=== PATIENT | female | born 1990 | race Caucasian/White ===

== ENCOUNTER 2018-01-28 14:51 | Emergency (ER) | payer MEDICAID ==
[~2018-01-28] VITALS: Ht 162.6 cm; Wt 69.4 kg
[2018-01-28] MEDS ORDERED: AMOXICILLIN500 MG PO (15:07)
[2018-01-28] MEDS ORDERED: ZOFRAN ODT8 MG PO (17:45)
== END 2018-01-28 18:07 | disposition home or self-care (01) ==
LOC: ED 14:51
DX: K04.7 Periapical abscess without sinus (principal); F17.200 Nicotine dependence, unspecified, uncomplicated; Z88.5 Allergy status to narcotic agent
CPT/HCPCS: 96361; 96374; 96375; 99283; J1885; J2405; J7030

== ENCOUNTER 2018-08-18 06:46 | Emergency (ER) | payer OTHER ==
[~2018-08-18] VITALS: Ht 162.6 cm; Wt 69.4 kg
[~2018-08-18 06:46] MED LIST: AMOXICILLIN500 MG PO; ZOFRAN ODT8 MG PO
[2018-08-18] MEDS ORDERED: IBU800 MG PO (07:03)
[2018-08-18] MEDS ORDERED: ATROVENT HFA12.9 GM INH (07:36)
[2018-08-18] MEDS ORDERED: PREDNISONE20 MG PO (07:36)
[2018-08-18] MEDS ORDERED: VENTOLIN HFA18 GM INH (08:33)
== END 2018-08-18 08:40 | disposition home or self-care (01) ==
LOC: ED 06:46
DX: J45.901 Unspecified asthma with (acute) exacerbation (principal); F17.200 Nicotine dependence, unspecified, uncomplicated; Z88.5 Allergy status to narcotic agent
CPT/HCPCS: 94640; 99283; J7512

== ENCOUNTER 2018-10-04 12:31 | Emergency (ER) | payer OTHER ==
[~2018-10-04] VITALS: Ht 162.6 cm; Wt 112.5 kg
[~2018-10-04 12:31] MED LIST changes: +ATROVENT HFA12.9 GM INH; +IBU800 MG PO; +PREDNISONE20 MG PO; +VENTOLIN HFA18 GM INH
[2018-10-04] MEDS ORDERED: PRENATAL FORMU1 EAC2 PO (12:42)
[2018-10-04] MEDS ORDERED: NASAL DECONGEST30 M2 PO (13:58)
[2018-10-04] MEDS ORDERED: AUGMENTIN 875-1 EACH PO (13:58)
[2018-10-04] MEDS ORDERED: PEPCID20 MG PO (13:58)
[2018-10-04] MEDS ORDERED: PROMETHAZINE HC25 M1 PO (13:58)
== END 2018-10-04 14:33 | disposition home or self-care (01) ==
LOC: ED 12:31
DX: O99.511 Diseases of the respiratory system complicating pregnancy, first trimester (principal); J32.0 Chronic maxillary sinusitis; O99.611 Diseases of the digestive system complicating pregnancy, first trimester; K21.9 Gastro-esophageal reflux disease without esophagitis; Z3A.11 11 weeks gestation of pregnancy; O99.331 Smoking (tobacco) complicating pregnancy, first trimester; F17.200 Nicotine dependence, unspecified, uncomplicated; Z88.5 Allergy status to narcotic agent; Z79.899 Other long term (current) drug therapy
CPT/HCPCS: 87502; 99283; 99406

== ENCOUNTER 2019-04-16 00:08 | Inpatient (IN) | payer OTHER ==
[~2019-04-16] VITALS: Ht 163.8 cm; Wt 121.0 kg
[~2019-04-16 00:08] MED LIST changes: +AUGMENTIN 875-1 EACH PO; +NASAL DECONGEST30 M2 PO; +PEPCID20 MG PO; +PRENATAL FORMU1 EAC2 PO; +PROMETHAZINE HC25 M1 PO
--- NOTE | 2019-04-16 10:30 | PR ---
[facility] [address] [facility] [place], [place] [address] Signed Progress Notes IP Datetime Report Generated by CPN: 04/16/2019 10:30 PROGRESS NOTES: [id number] Procedures: Artificial ROM Plan: Continue present management VITAL SIGNS: [id number] Vital Signs: Reviewed; Within Normal Limits EXAM: [id number] Dilatation: 2.0 Effacement: 25 Station: -3 Uterine Contractions: every 1-2 minutes MEMBRANES: [id number] Membrane Status: Ruptured Amniotic Fluid Color: Clear ROM Note: AROM with moderate clear fluid seen Comments: Tolerating contracitons well Fetus A: [id number] FHR Baseline: 130 Variability: Moderate 6-25bpm Accelerations: 15X15 Presentation: Vertex Fetus B: [id number] Signing Physician: Isaias Walters MD Copies: ~ *Electronically Signed* 04/16/19 1030 ISAIAS WALTERS MD PATIENT NAME: PEPE LEWIS PROGRESS NOTE DATE OF : [birth year] PHYSICIAN: ISAIAS WALTERS MD RPT #: [id number] REPORT IS CONFIDENTIAL AND NOT TO BE RELEASED WITHOUT AUTHORIZATION
--- NOTE | 2019-04-16 14:44 | PR ---
[facility] [address] [place], [place] [address] Signed Progress Notes IP Datetime Report Generated by CPN: 04/16/2019 14:44 PROGRESS NOTES: [id number] Impression: Non-reassuring heart rate Other Impressions: Bradycardia Procedures: Intrauterine Pressure Catheter; Scalp Electrode Plan: Deliver- Section Informed Consent Obtain: Section Delivery; Risks, Benefits and Alternatives Discussed VITAL SIGNS: [id number] Vital Signs: Reviewed; Within Normal Limits EXAM: [id number] Dilatation: 2.0 Effacement: 25 Station: -3 Uterine Contractions: everyb 2-4 minutes MEMBRANES: [id number] Membrane Status: Ruptured Amniotic Fluid Color: Clear ROM Note: AROM with moderate clear fluid seen Comments: Late Entruy: Having trouble tracking FHR and contracitons, so internal monitors placed after Epidural dosed. Sudden bradycardia to 40 bpm, normal BP, no vaginal bleeding; tried left side, right side, O2 without improvement. Code 4 C/S called. Patient taken to OR Fetus A: [id number] FHR Baseline: 125 Variability: Moderate 6-25bpm Accelerations: 15X15 Presentation: Vertex Comments on Fetus A: Bradycardia x 3-4 mintues to 40 bpm Fetus B: [id number] Signing Physician: Isaias Walters MD Copies: ~ *Electronically Signed* 04/16/19 1444 ISAIAS WALTERS MD PATIENT NAME: PEPE LEWIS PROGRESS NOTE DATE OF : [birth year] PHYSICIAN: ISAIAS WALTERS MD RPT #: [id number] REPORT IS CONFIDENTIAL AND NOT TO BE RELEASED WITHOUT AUTHORIZATION
--- NOTE | 2019-04-16 15:04 | NUR ---
04/16/19 1504 Sheets,Esther 1432 PT ARRIVED TO PACU, PT DENIES PAIN AND NAUSEA. PT DROWSY, RESP EVEN AND UNLABORED. VSS. IV INFUSING, LR WITH 20 OF PIT. 1440 PT REPORTS 5/10 WITH FUNDAL CHECKS, 1/10 LAYING IN BED. 1457 PT TO BREAST WITH FBC RN AT BEDSIDE.
--- NOTE | 2019-04-17 12:15 | PR ---
[facility] [address] [facility] [place], [place] [address] Signed PP Progress Notes Datetime Report Generated by CPN: 04/17/2019 12:15 SUBJECTIVE: [id number] Pain: Within normal limits Nausea/Vomiting: Denies Vital Signs: [id number] Vital Signs: Reviewed; Within Normal Limits Notable Details: PP Hgb/Hct = 10.6/32.3 EXAM: [id number] Abdomen/Uterus: Normal Lochia: Normal Extremities: Normal Incision: Normal IMPRESSION/PLAN/PROCEDURES: [id number] Impression: Normal progression Plan: Continue present management Procedures: None Progress Notes: Doing well, without complalint, up moving well, Santiago out and voiding without difficulty. Signing Physician: Isaias Walters MD Copies: ~ *Electronically Signed* 04/17/19 1215 ISAIAS WALTERS MD PATIENT NAME: PEPE LEWIS PROGRESS NOTE DATE OF : 90 PHYSICIAN: ISAIAS WALTERS MD RPT #: [id number] REPORT IS CONFIDENTIAL AND NOT TO BE RELEASED WITHOUT AUTHORIZATION
--- NOTE | 2019-04-18 09:43 | OR ---
[facility] [place] [facility] [address] [place], [place] [address] Signed DATE OF OPERATION: 04/16/2019 SURGEON: Brian Ryder MD Patient of Dr. Ryder. PREOPERATIVE DIAGNOSES: bradycardia, term labor. POSTOPERATIVE DIAGNOSES: bradycardia, term labor. PROCEDURE: Emergency primary low transverse segment section. Delivery of live female infant. STATION AGENT: Keeley Douglas MD ANESTHESIA: Epidural. ESTIMATED BLOOD LOSS: 800 mL. COMPLICATIONS: None. DRAINS: Santiago to bladder. FINDINGS: Live female infant, Apgars 9 and 9. Weight 8 pounds 0 ounces. Normal uterus, normal tubes and ovaries bilaterally. DESCRIPTION OF PROCEDURE: The patient was brought to the operating room, placed in supine position. The patient already had an epidural in place and was redosed. The patient was rapidly prepped and draped in usual sterile fashion. The patient already had Santiago catheter in place. A Pfannenstiel skin incision made with Electronically Signed By: BRIAN RYDER MD 04/18/19 0943 PATIENT NAME: PEPE LEWIS OPERATIVE REPORT DATE OF : [birth year] REPORT #: [id number] PHYSICIAN: BRIAN RYDER MD PCP: CHLOE DOSHI MD REPORT IS CONFIDENTIAL AND NOT TO BE RELEASED WITHOUT AUTHORIZATION [address] [address] Signed scalpel. Subcutaneous tissue was dissected with scalpel and with the Bovie. The fascia was nicked with scalpel and extended in a transverse fashion using curved scissors. The underlying abdominal musculature was bluntly and sharply from the fascia above and below the incision. The abdominal musculature was bluntly along the midline. Peritoneum was grasped with hemostats and elevated with curved scissors and opened with finger dissection. The [place] self-retaining retractor was inserted into the incision and tightened in place. The lower uterine segment was carefully nicked with scalpel and extended in transverse fashion using curved scissors. Infant was noted to be in vertex GERRY presentation. 's head easily delivered from the incision. There was a nuchal cord around the neck once loosely. This was removed and the rest of the easily delivered from the incision. The was placed in the prone position and head slightly lower while the cord was doubly clamped and cut, the infant passed off table in good condition, awaiting sales professional. The placenta was manually removed and the uterine cavity explored with a lap pad to remove any retained membranes. An angle stitch of 0 Monocryl was placed at one end of the incision and a running locking stitch of 0 Monocryl starting at the other end used to close the incision. A second running stitch of 0 Monocryl was used to imbricate the first layer. There was slight bleeding at the right angle and after placing finger behind the broad ligament to make sure that the stitch did not catch in the bowel or any other structure. Simple stitch of 0 Monocryl was tied in place and this did control the bleeding. The entire pelvis was irrigated, suctioned, and examined. Superficial bleeding spots were cauterized with Bovie. When good hemostasis was obtained, the anterior wall peritoneum was closed using running stitch of 2-0 Vicryl suture. The abdominal musculature was reapproximated using interrupted stitches of 0 Vicryl suture. There was one small area of bleeding in the muscle of the right lower muscle in the pelvis and this was controlled with a [id number]-[id number] stitch of 0 Vicryl suture. The entire pelvis was irrigated, suctioned, and examined, any bleeding spots were cauterized with Bovie. Since there was multiple areas of very slight bleeding throughout, but no specific areas noted needed control, it was decided to sprinkle the abdominal musculature was powdered Cherelle. Good hemostasis was then noted. Powdered ACell was then sprinkled on the abdominal musculature to help with healing. The fascia was closed using two running stitches of 0 Vicryl suture meeting in the midline. Subcutaneous tissue was irrigated, suctioned, and examined of any bleeding spots, cauterized with the Bovie. The subcutaneous tissue was then closed using interrupted stitches of 3-0 Vicryl suture. Skin was reapproximated using skin clips. The patient tolerated the procedure well and went to recovery room in good condition. The sponge, needle, and instrument count correct at the end of the procedure. Cord gases were sent to the lab. Electronically Signed By: BRIAN RYDER MD 04/18/19 0943 PATIENT NAME: PEPE LEWIS OPERATIVE REPORT DATE OF : [birth year] REPORT #: [id number] PHYSICIAN: BRIAN RYDER MD PCP: CHLOE DOSHI MD REPORT IS CONFIDENTIAL AND NOT TO BE RELEASED WITHOUT AUTHORIZATION [address] [address] Signed Brian Ryder MD MJB/MODL /[id number] Copies: ~ Electronically Signed By: BRIAN RYDER MD 04/18/19 0943 PATIENT NAME: PEPE LEWIS OPERATIVE REPORT DATE OF : [birth year] REPORT #: [id number] PHYSICIAN: BRIAN RYDER MD PCP: CHLOE DOSHI MD REPORT IS CONFIDENTIAL AND NOT TO BE RELEASED WITHOUT AUTHORIZATION
--- NOTE | 2019-04-18 09:50 | PR ---
[facility] [address] [place] [address] Signed PP Progress Notes Datetime Report Generated by CPN: 04/18/2019 09:50 SUBJECTIVE: [id number] Pain: Within normal limits Nausea/Vomiting: Denies Vital Signs: [id number] Vital Signs: Reviewed; Within Normal Limits Notable Details: PP Hgb/Hct = 10.6/32.3 EXAM: [id number] Abdomen/Uterus: Normal Lochia: Normal Extremities: Normal Incision: Normal IMPRESSION/PLAN/PROCEDURES: [id number] Impression: Normal progression Plan: Discharge Procedures: None Progress Notes: Doing well, without complaint, would like to go home. Signing Physician: Isaias Walters MD Copies: ~ *Electronically Signed* 04/18/19 0950 ISAIAS WALTERS MD PATIENT NAME: PEPE LEWIS PROGRESS NOTE DATE OF : [birth year] PHYSICIAN: ISAIAS WALTERS MD RPT #: [id number] REPORT IS CONFIDENTIAL AND NOT TO BE RELEASED WITHOUT AUTHORIZATION
== END 2019-04-18 13:50 | disposition home or self-care (01) | DRG 788 ==
LOC: FBC 00:08
PROVIDERS: ADMIT General Practice
PROC: 10907ZC Drainage of Amniotic Fluid, Therapeutic from Products of Conception, Via Natural or Artificial Opening (ICD-10-PCS; 2019-04-16)
PROC: 10H07YZ Insertion of Other Device into Products of Conception, Via Natural or Artificial Opening (ICD-10-PCS; 2019-04-16)
PROC: 3E0P7VZ Introduction of Hormone into Female Reproductive, Via Natural or Artificial Opening (ICD-10-PCS; 2019-04-16)
PROC: 00HU33Z Insertion of Infusion Device into Spinal Canal, Percutaneous Approach (ICD-10-PCS; 2019-04-16)
PROC: 3E0R3BZ Introduction of Anesthetic Agent into Spinal Canal, Percutaneous Approach (ICD-10-PCS; 2019-04-16)
PROC: 10D00Z1 Extraction of Products of Conception, Low, Open Approach (ICD-10-PCS; principal; 2019-04-16 13:00)
DX: O36.63X0 Maternal care for excessive fetal growth, third trimester, not applicable or unspecified (principal); Z3A.39 39 weeks gestation of pregnancy; Z37.0 Single live birth; O99.334 Smoking (tobacco) complicating childbirth; O76 Abnormality in fetal heart rate and rhythm complicating labor and delivery; F17.210 Nicotine dependence, cigarettes, uncomplicated; O99.52 Diseases of the respiratory system complicating childbirth; J45.909 Unspecified asthma, uncomplicated; O69.81X0 Labor and delivery complicated by cord around neck, without compression, not applicable or unspecified; Z79.899 Other long term (current) drug therapy; Z88.5 Allergy status to narcotic agent; Z88.8 Allergy status to other drugs, medicaments and biological substances
CPT/HCPCS: 01961; 82803; 85027; J0131; J1644; J1885; J2250; J2405; J2540; J2590; J2795; J3010; J3105; J7060; J7120

== ENCOUNTER 2019-07-21 09:15 | Emergency (ER) | payer OTHER ==
[~2019-07-21] VITALS: Ht 165.1 cm; Wt 121.1 kg
[2019-07-21] MEDS ORDERED: ZITHROMAX250 MG PO (12:04)
[2019-07-21] MEDS ORDERED: PREDNISONE20 MG PO (12:04)
== END 2019-07-21 12:48 | disposition home or self-care (01) ==
LOC: ED 09:15
DX: J18.9 Pneumonia, unspecified organism (principal); J45.909 Unspecified asthma, uncomplicated; E86.0 Dehydration; F17.200 Nicotine dependence, unspecified, uncomplicated; Z88.8 Allergy status to other drugs, medicaments and biological substances; Z88.5 Allergy status to narcotic agent
CPT/HCPCS: 71046; 80053; 85025; 87502; 94640; 96361; 96374; 99284-25; J1885; J7030

== ENCOUNTER 2022-04-04 15:23 | Emergency (ER) | payer OTHER ==
[~2022-04-04] VITALS: Ht 165.1 cm; Wt 129.9 kg
[~2022-04-04 15:23] MED LIST changes: +ZITHROMAX250 MG PO
== END 2022-04-04 22:08 | disposition home or self-care (01) ==
LOC: ED 15:23
DX: J45.901 Unspecified asthma with (acute) exacerbation (principal); Z20.822 Contact with and (suspected) exposure to COVID-19; F17.200 Nicotine dependence, unspecified, uncomplicated; Z88.5 Allergy status to narcotic agent; Z88.8 Allergy status to other drugs, medicaments and biological substances
CPT/HCPCS: 71045; 87502; 94640; 99284-25; C9803; U0003

== ENCOUNTER 2022-07-02 05:35 | Day surgery (SDC) | payer OTHER ==
[~2022-07-02] VITALS: Ht 165.1 cm; Wt 131.8 kg
[2022-07-02] MEDS ORDERED: VENTOLIN HFA18 GM INH (06:15)
[2022-07-02] MEDS ORDERED: HYDROCODON-ACE1 EA10 PO (07:38)
--- NOTE | 2022-07-02 07:42 | NUR ---
07/02/22 0742 Yelena Whitmore 0736-PT TO PACU IN SF POSITION. EYES OPEN BUT DROWSY. PT ASKING QUESTIONS ABOUT PROCEDURE. BREATHING EASY AND UNLABORED. SPO2 >95% ON 8 L 02 VIA NC. PT DENIES PAIN AND NAUSEA. ICE APPLIED TO SURGICAL SITE. 0740-PT REMAINS AWAKE. BREATHING EASY AND UNLABORED. SPO2 >95% O2 TITRATED DOWN TO ROOM AIR.
--- NOTE | 2022-07-05 09:08 | OR ---
[facility] [address] [place], [place] [address] Signed DATE OF OPERATION: 07/02/2022 SURGEON: Omar Mendez MD PREOPERATIVE DIAGNOSIS: Carpal tunnel syndrome, right. POSTOPERATIVE DIAGNOSIS: Carpal tunnel syndrome, right. PROCEDURE PERFORMED: Carpal tunnel release, right. MEDIA RECONCILIATION SPECIALIST: VINICIUS Branhc ANESTHESIA: Davidson block. TOURNIQUET TIME: 20 minutes. BRIEF HISTORY: Fatimah is a 31-year-old female with pain and numbness in her hands. She had undergone nerve conduction studies confirming carpal tunnel and had the left released. She wished to proceed with the right. Once consent was obtained, she was taken to the operating room after adequate anesthesia. She was placed on the operating table. All downside pressure points well padded. The arm was prepped and draped in a standard sterile fashion. After adequate anesthesia was established, the carpal tunnel was approached through a 1.5 cm transverse incision in the distal wrist crease, this was carried through skin and subcutaneous tissue and directly down onto the transverse carpal ligament. The palmaris longus was identified, retracted, and protected. The transverse carpal ligament was dissected free of overlying soft tissue under loupe magnification. It was then released proximally a centimeter and distally to the distal extent. The tunnel was then palpated using the [place] and found to be completely released. The wound was copiously irrigated with normal saline, closed with 3-0 nylon and infiltrated with 8 mL of 0.25% plain Marcaine. The wound was then dressed with bacitracin, Adaptic, 4x8's, and gauze. She tolerated the procedure well. All sponge, needle, and instrument counts were correct. Electronically Signed By: OMAR MENDEZ MD 07/05/22 0908 PATIENT NAME: FATIMAH LEWIS OPERATIVE REPORT DATE OF : [birth year] REPORT #: [id number] PHYSICIAN: OMAR MENDEZ MD PCP: DORIS MEDRANO MD REPORT IS CONFIDENTIAL AND NOT TO BE RELEASED WITHOUT AUTHORIZATION [address] [place] [address] Signed Omar Mendez MD BA/JOHANNA /[id number] Copies: ~ Electronically Signed By: OMAR MENDEZ MD 07/05/22 0908 PATIENT NAME: FATIMAH LEWIS OPERATIVE REPORT DATE OF : [birth year] REPORT #: [id number] PHYSICIAN: OMAR MENDEZ MD PCP: DORIS MEDRANO MD REPORT IS CONFIDENTIAL AND NOT TO BE RELEASED WITHOUT AUTHORIZATION
== END 2022-07-02 08:15 | disposition home or self-care (01) ==
LOC: DS 05:35
PROVIDERS: ATTEND Specialist
PROC: 01N50ZZ Release Median Nerve, Open Approach (ICD-10-PCS; principal; 2022-07-02 07:00)
DX: G56.01 Carpal tunnel syndrome, right upper limb (principal); J45.909 Unspecified asthma, uncomplicated; F17.210 Nicotine dependence, cigarettes, uncomplicated; E66.01 Morbid (severe) obesity due to excess calories; K21.9 Gastro-esophageal reflux disease without esophagitis; F32.A Depression, unspecified
CPT/HCPCS: J0690; J1100; J1885; J2250; J2405; J2704; J2765; J3010; J7121